=== PATIENT | male | born 1940 | race Caucasian/White ===

== ENCOUNTER 2017-11-27 13:50 | Inpatient (IN) | payer OTHER ==
[~2017-11-27] VITALS: Ht 180.3 cm; Wt 107.6 kg
[2017-11-27] MEDS ORDERED: ASPIR 8181 M1 PO (16:43)
[2017-11-27] MEDS ORDERED: PAIN RELIEF650 MG PO (16:50)
[2017-11-27] MEDS ORDERED: LOVENOX40 MG/0.4 SQ (17:23)
[2017-11-27] MEDS ORDERED: OMEGA-3 ACID ETH1 GM PO (17:26)
[2017-11-27] MEDS ORDERED: MULTI VITAMIN1 EACH PO (17:30)
[2017-11-27] MEDS ORDERED: CLOPIDOGREL75 MG PO (17:31)
[2017-11-27] MEDS ORDERED: LIPITOR80 MG PO (17:33)
[2017-11-27 18:22] VITALS: BP 134/77
[2017-11-28 00:12] VITALS: BP 132/85
[2017-11-28 04:17] VITALS: BP 140/88
[2017-11-28 07:09] LABS: HEMATOCRIT 44.9 % (38.0-50.0); HEMOGLOBIN 14.6 G/DL (12.5-16.6); MCH 29.1 PG (29.0-34.0); MCHC 32.5 G/DL (30.0-36.0); MCV 89.6 FL (86-99); PLATELET COUNT 222 K/uL (156-360); RBC DIS.WIDTH-CV 14.1 % (11.8-14.6); RBC DIS.WIDTH-SD 46.5 % (39-53); RED BLOOD COUNT 5.01 M/uL (4.00-5.50)
[2017-11-28 07:28] LABS: ALBUMIN 3.8 G/DL (3.2-4.8); ALKALINE PHOSPHATASE 56 IU/L (3-129); ALT (GPT) 54 IU/L (3-49); AST (GOT) 36 IU/L (2-34); CHLORIDE 106 MEQ/L (99-109); GFR ESTIMATE (CALCULATED) > 59 mL/min/ (58.99-99999); GLUCOSE 97 mg/dL (70-99); POTASSIUM 4.4 MEQ/L (3.7-5.4); SODIUM 140 MEQ/L (136-147); TOTAL BILIRUBIN 0.6 MG/DL (0.0-1.0); TOTAL PROTEIN 6.1 G/DL (6.4-8.3); UREA NITROGEN (BUN) 19 mg/dL (9-23)
[2017-11-28 15:36] VITALS: BP 109/72
[2017-11-29 04:15] VITALS: BP 147/89
[2017-11-29 15:11] VITALS: BP 124/79
[2017-11-30 05:02] VITALS: BP 135/79
[2017-11-30 15:26] VITALS: BP 128/80
[2017-12-01 05:33] VITALS: BP 132/81
[2017-12-01 15:04] VITALS: BP 127/80
[2017-12-02 05:55] VITALS: BP 167/81
[2017-12-02 11:02] VITALS: BP 124/86
[2017-12-02 16:26] VITALS: BP 124/76
[2017-12-03 04:48] VITALS: BP 128/75
[2017-12-03 15:30] VITALS: BP 120/89
[2017-12-04 05:17] VITALS: BP 138/72
[2017-12-04 15:34] VITALS: BP 133/80
[2017-12-05 16:00] VITALS: BP 132/86; BP 146/86
[2017-12-06 04:24] VITALS: BP 130/59
[2017-12-07 06:34] VITALS: BP 149/73
[2017-12-07 16:21] VITALS: BP 135/78
[2017-12-08 05:15] VITALS: BP 148/80
[2017-12-08 15:54] VITALS: BP 140/88
[2017-12-09 05:13] VITALS: BP 141/80
[2017-12-09 15:39] VITALS: BP 139/76
[2017-12-10 06:49] VITALS: BP 131/64
[2017-12-10 15:25] VITALS: BP 106/71
[2017-12-11 04:57] VITALS: BP 124/72
[2017-12-11 16:17] LABS: BASOPHIL (%) 0.7 % (0-1); EOSINOPHIL COUNT 0.1 K/uL (0-0.3); HEMATOCRIT 45.1 % (38.0-50.0); HEMOGLOBIN 14.9 G/DL (12.5-16.6); IMMATURE GRANULOCYTE (%) 0.3 % (0.0-0.7); LYMPHOCYTE (%) 22.4 % (15-42); LYMPHOCYTE COUNT 1.3 K/uL (1.0-2.8); MCH 29.4 PG (29.0-34.0); MONOCYTE (%) 8.8 % (3-12); MONOCYTE COUNT 0.5 K/uL (0-0.8); NEUTROPHIL (%) 65.8 % (45-76); NEUTROPHIL COUNT 3.9 K/uL (1.8-6.4); PLATELET COUNT 228 K/uL (156-360); RBC DIS.WIDTH-SD 45.3 % (39-53); RED BLOOD COUNT 5.07 M/uL (4.00-5.50); WHITE BLOOD COUNT 5.9 K/uL (4.1-10.2)
[2017-12-11 16:39] VITALS: BP 118/70
[2017-12-11 16:39] LABS: ALBUMIN 3.9 G/DL (3.2-4.8); ALKALINE PHOSPHATASE 69 IU/L (3-129); ALT (GPT) 46 IU/L (3-49); AST (GOT) 27 IU/L (2-34); CHLORIDE 105 MEQ/L (99-109); CREATININE 0.9 MG/DL (0.6-1.3); GFR ESTIMATE (CALCULATED) > 59 mL/min/ (58.99-99999); GLUCOSE 111 mg/dL (70-99); POTASSIUM 4.1 MEQ/L (3.7-5.4); SODIUM 140 MEQ/L (136-147); TOTAL BILIRUBIN 0.4 MG/DL (0.0-1.0); TOTAL PROTEIN 6.2 G/DL (6.4-8.3); UREA NITROGEN (BUN) 18 mg/dL (9-23)
[2017-12-12 05:43] VITALS: BP 156/84
[2017-12-12 15:23] VITALS: BP 139/83
[2017-12-13 05:09] VITALS: BP 145/82
[2017-12-13 15:13] VITALS: BP 120/78
[2017-12-14 05:36] VITALS: BP 157/85
[2017-12-14 15:08] VITALS: BP 125/78
[2017-12-15 05:02] VITALS: BP 148/73
[2017-12-15 15:31] VITALS: BP 122/76
[2017-12-16 05:10] VITALS: BP 137/83
[2017-12-16 16:25] VITALS: BP 106/69
[2017-12-17 04:47] VITALS: BP 120/66
[2017-12-17 16:19] VITALS: BP 124/69
[2017-12-18 05:13] VITALS: BP 132/67
[2017-12-18 06:49] LABS: HEMATOCRIT 42.5 % (38.0-50.0); HEMOGLOBIN 13.8 G/DL (12.5-16.6); MCH 28.8 PG (29.0-34.0); MCHC 32.5 G/DL (30.0-36.0); MCV 88.7 FL (86-99); PLATELET COUNT 197 K/uL (156-360); RBC DIS.WIDTH-CV 13.9 % (11.8-14.6); RBC DIS.WIDTH-SD 45.1 % (39-53); RED BLOOD COUNT 4.79 M/uL (4.00-5.50); WHITE BLOOD COUNT 5.1 K/uL (4.1-10.2)
[2017-12-18 07:13] LABS: ALBUMIN 3.6 G/DL (3.2-4.8); ALKALINE PHOSPHATASE 70 IU/L (3-129); ALT (GPT) 45 IU/L (3-49); AST (GOT) 24 IU/L (2-34); CHLORIDE 109 MEQ/L (99-109); GFR ESTIMATE (CALCULATED) > 59 mL/min/ (58.99-99999); GLUCOSE 98 mg/dL (70-99); POTASSIUM 4.9 MEQ/L (3.7-5.4); SODIUM 143 MEQ/L (136-147); TOTAL BILIRUBIN 0.6 MG/DL (0.0-1.0); TOTAL PROTEIN 5.6 G/DL (6.4-8.3); UREA NITROGEN (BUN) 16 mg/dL (9-23)
[2017-12-18 14:26] VITALS: BP 116/72
[2017-12-18] MEDS ORDERED: ASPIR 8181 M1 PO (18:44)
[2017-12-18] MEDS ORDERED: LIPITOR80 MG PO (18:44)
[2017-12-18] MEDS ORDERED: SENNA PLUS TAB1 EACH PO (18:44)
[2017-12-18] MEDS ORDERED: CLOPIDOGREL75 MG PO (18:44)
[2017-12-19 04:16] VITALS: BP 140/76
== END 2017-12-19 11:00 | DRG 57 ==
LOC: 3WEST 13:50 → ENPENDDIS 12-11 → 3WEST 12-13 12:19
PROVIDERS: Physical Medicine & Rehabilitation Pain Medicine; Psychiatry & Neurology Neurology
PROC: F07M0ZZ Range of Motion and Joint Mobility Treatment of Musculoskeletal System - Whole Body (ICD-10-PCS; principal; 2017-11-27)
DX: I69.351 Hemiplegia and hemiparesis following cerebral infarction affecting right dominant side (principal); R26.9 Unspecified abnormalities of gait and mobility; I10 Essential (primary) hypertension; E78.5 Hyperlipidemia, unspecified; D64.9 Anemia, unspecified; R01.1 Cardiac murmur, unspecified; R47.1 Dysarthria and anarthria; Z87.891 Personal history of nicotine dependence; Z88.8 Allergy status to other drugs, medicaments and biological substances; Z79.82 Long term (current) use of aspirin; Z79.899 Other long term (current) drug therapy
CPT/HCPCS: 80053; 85025; 85027; 92507 GN; 92523 GN; 97110 GO; 97112 GO; 97530 GP; G0283 GO; G0515 GN; J1650